=== PATIENT | male | born 2000 | race Caucasian/White ===

== ENCOUNTER 2020-04-21 17:10 | Emergency (ER) | payer OTHER ==
[~2020-04-21] VITALS: Ht 182.9 cm; Wt 113.4 kg
[2020-04-21 17:20] VITALS: Ht 182.9 cm; Wt 113.4 kg
[2020-04-21 18:40] VITALS: BP 137/75
== END 2020-04-21 18:40 | disposition home or self-care (01) ==
LOC: ED 17:10
DX: M54.5 Low back pain (principal)
CPT/HCPCS: J1885